=== PATIENT | female | born 1965 | race Caucasian/White ===

== ENCOUNTER → 2024-02-27 15:01 | Outpatient (CLI) | payer OTHER, SELFPAY ==
--- NOTE | 2024-02-27 15:04 | DI.RAD.S_ITS ---
PROCEDURE: XR FINGER LT MIN 2V INDICATIONS: left middle finger smash between 2 bath stall doors TECHNIQUE: AP hand, 2 views of the 3rd finger(s) acquired. COMPARISON: None. FINDINGS: Bones: No fractures or dislocations. No suspicious bony lesions. Soft tissues: No suspicious soft tissue calcifications. IMPRESSION: No acute bony abnormality. Approved by: Irvin Lundy M.D. on 02/27/2024 at 16:58
== END ==
PROVIDERS: Referring Provider Student in an Organized Health Care Education/Training Program; Visit Provider Student in an Organized Health Care Education/Training Program
DX: S67.10XA Crushing injury of unspecified finger(s), initial encounter (principal); X58.XXXA Exposure to other specified factors, initial encounter
CPT/HCPCS: 73140